=== PATIENT | male | born 1970 | race Caucasian/White ===

== ENCOUNTER 2016-12-05 22:52 | Emergency (ER) | payer OTHER ==
[~2016-12-05] VITALS: Ht 180.3 cm; Wt 79.4 kg
[2016-12-05] MEDS ORDERED: NKM (23:14)
[2016-12-05 23:38] VITALS: BP 132/75
--- NOTE | 2016-12-05 23:40 | Emergency Room Report ---
History of Present Illness General Chief Complaint: Pain Source: Patient Present Illness HPI Patient presents with left leg swelling Patient was playing soccer approximately 10 days ago when he was kicked in the back of the leg In the mid calf area Patient had pain at the time However since then has been playing soccer again and returned to his routine daily activities Today however he noticed increased swelling in the ankle region He had discussed this with family members with possible differentials of compartment syndrome, or DVT and was concerning came to the ER At this time denies any pain at rest However with full flexion of the calf He does feel some discomfort in the calf area Denies any ankle pain Denies any pelvic pain Allergies: Coded Allergies: No Known Allergies (Unverified , 12/05/16) Patient History Past Medical History: see triage record Pertinent Family History: none Reviewed Nursing Documentation: PMH: Agreed, PSxH: Agreed Nursing Documentation-PMH Past Medical History: No Stated History Review of Systems All Other Systems: negative except mentioned in HPI Physical Exam Vital Signs Date Time Temp Pulse Resp B/P (MAP) Pulse Ox O2 Delivery O2 Flow Rate FiO2 12/05/16 23:11 97.3 57 16 132/75 99 Room Air Sp02 EP Interpretation: reviewed, normal General Appearance: well appearing, no apparent distress Head: normocephalic, atraumatic Eyes: bilateral eye PERRL, bilateral eye EOMI ENT: normal pharynx Neck: supple Musculoskeletal: other - Some mild swelling noted on the left ankle, the left lower calf does appear mildly more swollen compared to the right, patient's Achilles tendon is intact with appropriate flexion, patient does have some tenderness on deep palpation of the mid calf, otherwise able to flex extend the foot Neurologic: alert, oriented x3, responsive Skin: other - as above Lymphatic: no adenopathy Medical Decision Making Diagnostic Impression: Primary Impression: hematoma Additional Impression: clinical partial muscle tear ER Course Given the patient's history and exam I doubt DVT Patient did have a recent travel from [place] however did not have any pathology prior to the traumatic injury Multiple differentials at this time to include, deep hematoma, muscle tear partial muscle versus Achilles tear, developing compartment syndrome secondary to the above At this time I felt that having a splint with nonweightbearing and further followup such as MRI would be helpful The patient however is refusing the splint, and reports that he will essentially walk without getting too much weight on the leg Visiting worsening symptoms or further swelling, this can lead to worsening pathology and the patient is understanding of the need for close outpatient followup, Last Vital Signs Date Time Temp Pulse Resp B/P (MAP) Pulse Ox O2 Delivery O2 Flow Rate FiO2 12/05/16 23:11 97.3 57 16 132/75 99 Room Air Status: unchanged Disposition: HOME, SELF-CARE Condition: Stable Patient Instructions: Hematoma, [id number], Muscle Tear Additional Instructions: Patient is provided with the discharge instructions notified to follow up with primary doctor in the next 2-3 days otherwise return to the er with any worsening symptoms. Please note that this report is being documented using [employer] technology. This can lead to erroneous entry secondary to incorrect interpretation by the dictating instrument. JARROD URBINA D.O. Dec 05, 2016 23:40
== END 2016-12-05 23:40 | disposition home or self-care (01) ==
LOC: EMR 23:15
DX: S80.12XA Contusion of left lower leg, initial encounter (principal); T14.8 Other injury of unspecified body region; W50.0XXA Accidental hit or strike by another person, initial encounter; Y93.66 Activity, soccer; Y92.9 Unspecified place or not applicable
CPT/HCPCS: 99282